=== PATIENT | male | born 1995 | race African-American/Black ===

== ENCOUNTER 2017-03-04 19:08 | Emergency (ER) | payer OTHER ==
[2017-03-04] MEDS ORDERED: Nitroglycerin 0.4 MG TAB 1 EACH ONE (19:35)
[2017-03-04 19:39] LABS: #Basophils 0.1 thou/uL (0.0-0.2); #Eosinphils 0.3 thou/uL (0.0-0.7); #Lymphocytes 2.7 thou/uL (1.20-3.40); #Monocytes 0.7 thou/uL (0.11-0.59); #Neutrophils 2.8 thou/uL (1.40-6.50); %Eosinophils 5.1 % (0.0-10.0); %Lymphocytes 40.2 % (21.0-51.0); %Neutrophils 42.7 % (42.0-75.0); Hemoglobin 15.2 g/dL (14.0-18.0); Mean Corpuscular HGB CONC 32.8 g/dL (32.0-36.0); Mean Corpuscular Hemoglobin 29.5 pg (27.0-31.0); Mean Corpuscular Volume 89.8 fl (80.0-94.0); Mean Platelet Volume 7.4 fL (7.4-10.4); Platelet Count 268 thou/uL (130-400); RBC Distribution Width 13.1 % (11.5-14.5); Red Blood Cell (RBC) Count 5.17 mill/uL (4.70-6.10); White Blood Cell (WBC) Count 6.6 thou/uL (4.8-10.8)
[2017-03-04 19:45] LABS: PTT 27.2 SEC (22.9-36.1); Prothrombin Time 13.7 SEC (12.0-14.7)
[2017-03-04 19:47] LABS: ALT (SGPT) 35 U/L (8-55); AST (SGOT) 27 U/L (5-34); Albumin 4.5 g/dL (3.5-5.0); Alkaline Phosphatase 94 U/L (40-150); Anion Gap 14 mmol/L (10-20); BUN (Urea Nitrogen) 18 mg/dL (8.9-20.6); Bilirubin, Total 0.3 mg/dL (0.2-1.2); CK (CPK) 449 U/L (30-200); Calc. Creatinine Clearance 0 mL/min (70-130); Calcium 9.5 mg/dL (7.8-10.44); Carbon Dioxide 24 mmol/L (22-29); Chloride 106 mmol/L (98-107); Estimated GFR-MDRD Greater than 90; Globulin 2.9 g/dL (2.4-3.5); Glucose 88 mg/dL (70-105); Magnesium 2.3 mg/dL (1.6-2.6); Potassium 3.8 mmol/L (3.5-5.1); Protein, Total 7.4 g/dL (6.0-8.3); Sodium 140 mmol/L (136-145)
[2017-03-04 19:48] LABS: CKMB 1.4 ng/mL (0-6.6); Troponin I Less than 0.010 ng/mL (< 0.028)
[2017-03-04 19:49] LABS: D-Dimer Test Less than 0.27 *mcg/mL (0.27-0.43)
--- NOTE | 2017-03-04 21:15 | RAD ---
RADIOGRAPH CHEST 1 VIEW: HISTORY: 21-year-old male with acute chest pain. FINDINGS: The visualized lung canela are clear. The cardiomediastinal silhouette and hilar shadows are normal . The lateral costophrenic angles are sharp. The osseous structures appear normal. There is no pn eumothorax. IMPRESSION: Negative. [email or web address] POS: [facility]
== END 2017-03-04 21:08 | disposition short-term general hospital (02) ==
LOC: MADERS 19:08
DX: R07.89 Other chest pain (principal)
CPT/HCPCS: 71010; 80053; 82553; 83735; 83880; 84484; 85025; 85379; 85610; 85652; 85730; 86140; 93005; 94760

== ENCOUNTER 2017-03-12 19:46 | Emergency (ER) | payer OTHER ==
[~2017-03-12 19:46] MED LIST: Lidocaine 1% 20 ML MDV ONE; Sodium Chloride Irrig Solution 250 ML BOT ONE
[2017-03-12] MEDS ORDERED: Triple Antibiotic Oint 1 GM Packet ONE (20:22)
== END 2017-03-12 20:30 | disposition home or self-care (01) ==
LOC: MADERS 19:46
DX: S61.012A Laceration without foreign body of left thumb without damage to nail, initial encounter (principal); F32.9 Major depressive disorder, single episode, unspecified; Z79.899 Other long term (current) drug therapy; W26.0XXA Contact with knife, initial encounter
CPT/HCPCS: 12002; J2001

== ENCOUNTER 2018-04-22 13:42 | Emergency (ER) | payer OTHER ==
[~2018-04-22 13:42] MED LIST changes: -Lidocaine 1% 20 ML MDV ONE; +Sodium Chloride 0.9% 1,000 ML BAG ONE; -Sodium Chloride Irrig Solution 250 ML BOT ONE
[2018-04-22] MEDS ORDERED: Ketorolac Tromethamine 30 MG/ML VIAL ONE (15:16)
[2018-04-22] MEDS ORDERED: Diphenoxylate HCl/Atropine Tablet ONE (15:16)
[2018-04-22] MEDS ORDERED: Ondansetron ODT 4 MG TAB ONE (15:16)
[2018-04-22 15:23] LABS: Bilirubin Negative (Negative); Blood, Urine Negative (Negative); Clarity Clear (Clear); Glucose, Urine (Dipstick) Negative (Negative); Leukocyte Negative (Negative); Nitrite Negative (Negative); Protein, Urine (Dipstick) Negative (Neg-Trace); Urobilinogen 0.2 mg/dL (0.2-1.0)
[2018-04-22 15:24] LABS: #Basophils 0.2 thou/uL (0.0-0.2); #Eosinphils 0.2 thou/uL (0.0-0.7); #Lymphocytes 2.3 thou/uL (1.20-3.40); #Monocytes 0.5 thou/uL (0.11-0.59); #Neutrophils 3.5 thou/uL (1.40-6.50); %Basophils 2.4 % (0.0-1.0); %Eosinophils 3.2 % (0.0-10.0); %Monocytes 7.4 % (0.0-10.0); Hemoglobin 13.1 g/dL (14.0-18.0); Mean Corpuscular HGB CONC 31.3 g/dL (32.0-36.0); Mean Corpuscular Hemoglobin 27.6 pg (27.0-31.0); Mean Corpuscular Volume 88.3 fL (78.0-98.0); Mean Platelet Volume 6.5 fL (7.4-10.4); Platelet Count 326 thou/uL (130-400); RBC Distribution Width 12.1 % (11.5-14.5); Red Blood Cell (RBC) Count 4.73 mill/uL (4.70-6.10); White Blood Cell (WBC) Count 6.7 thou/uL (4.8-10.8)
--- NOTE | 2018-04-22 15:28 | RAD ---
SINGLE VIEW OF THE CHEST: Comparison: 03-04-17 History: Nausea and vomiting. FINDINGS: Single view of the chest shows a normal sized cardiomediastinal silhouette. There is no evidence of c onsolidation, mass, or pleural effusion. The bones are unremarkable. IMPRESSION: No evidence of acute cardiopulmonary disease. POS: [facility]
[2018-04-22 15:38] LABS: Bacteria/HPF 1+ HPF (None Seen); RBC/HPF 0-3 HPF (0-3); Squamous Epithelial 0-3 HPF (0-3); WBC/HPF 0-3 HPF (0-3)
[2018-04-22 15:39] LABS: ALT (SGPT) 15 U/L (8-55); AST (SGOT) 20 U/L (5-34); Albumin 4.5 g/dL (3.5-5.0); Alkaline Phosphatase 70 U/L (40-150); Anion Gap 16 mmol/L (10-20); BUN (Urea Nitrogen) 13 mg/dL (8.9-20.6); Bilirubin, Total 0.9 mg/dL (0.2-1.2); Calc. Creatinine Clearance 0 mL/min (70-130); Calcium 9.6 mg/dL (7.8-10.44); Carbon Dioxide 25 mmol/L (22-29); Chloride 105 mmol/L (98-107); Estimated GFR-MDRD Greater than 90; Globulin 2.9 g/dL (2.4-3.5); Glucose 81 mg/dL (70-105); Lipase 4 U/L (8-78); Potassium 3.7 mmol/L (3.5-5.1); Protein, Total 7.4 g/dL (6.0-8.3); Sodium 142 mmol/L (136-145)
== END 2018-04-22 16:30 | disposition home or self-care (01) ==
LOC: MADERS 13:42
DX: K52.9 Noninfective gastroenteritis and colitis, unspecified (principal); F32.9 Major depressive disorder, single episode, unspecified
CPT/HCPCS: 36415; 71045; 80053; 81001; 82150; 83690; 85025; 87086; 96361; 96374; J1885; J7050; Q0162

== ENCOUNTER 2018-07-27 12:15 | Emergency (ER) | payer SELFPAY ==
[2018-07-27] MEDS ORDERED: Ibuprofen 800 MG TAB ONE (12:29)
[2018-07-27] MEDS ORDERED: methylPREDNISolone Sod Succ/PF 125 MG/2 ML VIAL ONE (12:33)
[2018-07-27 12:48] LABS: Anion Gap 16 mmol/L (10-20); BUN (Urea Nitrogen) 10 mg/dL (8.9-20.6); CK (CPK) 284 U/L (30-200); Calc. Creatinine Clearance 0 mL/min (70-130); Calcium 9.9 mg/dL (7.8-10.44); Carbon Dioxide 23 mmol/L (22-29); Estimated GFR-MDRD Greater than 90; Glucose 88 mg/dL (70-105); Potassium 4.5 mmol/L (3.5-5.1); Sodium 141 mmol/L (136-145)
--- NOTE | 2018-07-27 12:48 | RAD ---
CHEST 1 VIEW: HISTORY: Pain. COMPARISON: 04/22/2018. FINDINGS: Normal cardiac silhouette. The lungs and pleural spaces are clear. No pneumothorax or osseous abnor malities. IMPRESSION: No acute cardiopulmonary process. POS: [email or web address]
[2018-07-27 12:49] LABS: Eosinophils 3 % (0-10); Hemoglobin 15.3 g/dL (14.0-18.0); Lymphocytes 34 % (21-51); MDiff Complete? YES; Mean Corpuscular HGB CONC 32.6 g/dL (32.0-36.0); Mean Corpuscular Hemoglobin 29.5 pg (27.0-31.0); Mean Corpuscular Volume 90.5 fL (78.0-98.0); Mean Platelet Volume 7.2 fL (7.4-10.4); Monocytes 10 % (0-10); Neutrophil 53 % (42-75); PLT Morphology Comment Appears Adequate; Platelet Count 309 thou/uL (130-400); RBC Distribution Width 12.5 % (11.5-14.5); Red Blood Cell (RBC) Count 5.18 mill/uL (4.70-6.10); White Blood Cell (WBC) Count 6.1 thou/uL (4.8-10.8)
[2018-07-27 12:50] LABS: CKMB 1.2 ng/mL (0-6.6); Troponin I Less than 0.010 ng/mL (< 0.028)
[2018-07-27 13:02] LABS: Chloride 107 mmol/L (98-107)
== END 2018-07-27 13:15 | disposition home or self-care (01) ==
LOC: MADERS 12:15
DX: R07.81 Pleurodynia (principal); F32.9 Major depressive disorder, single episode, unspecified
CPT/HCPCS: 71045; 80048; 82553; 84484; 85025; 85379; 93005; 96374; J2930

== ENCOUNTER 2019-01-11 10:30 | Emergency (ER) | payer SELFPAY ==
[2019-01-11 11:39] LABS: ALT (SGPT) 18 U/L (8-55); AST (SGOT) 20 U/L (5-34); Acetaminophen Less than 6.0 mcg/mL (10.0-30.0); Albumin 4.6 g/dL (3.5-5.0); Alcohol Less than 10 mg/dL (Less than 10); Alkaline Phosphatase 84 U/L (40-150); Anion Gap 14 mmol/L (10-20); BUN (Urea Nitrogen) 15 mg/dL (8.9-20.6); Bilirubin, Total 0.6 mg/dL (0.2-1.2); Calc. Creatinine Clearance 0 mL/min (70-130); Calcium 9.7 mg/dL (7.8-10.44); Carbon Dioxide 23 mmol/L (22-29); Chloride 108 mmol/L (98-107); Estimated GFR-MDRD Greater than 90; Globulin 2.8 g/dL (2.4-3.5); Glucose 99 mg/dL (70-105); Potassium 4.2 mmol/L (3.5-5.1); Protein, Total 7.4 g/dL (6.0-8.3); Salicylate Less than 8.0 mg/dL (15.0-30.0); Sodium 141 mmol/L (136-145)
[2019-01-11 11:42] LABS: Hemoglobin 14.4 g/dL (14.0-18.0); Manual Diff?? YES; Mean Corpuscular HGB CONC 30.5 g/dL (32.0-36.0); Mean Corpuscular Hemoglobin 28.2 pg (27.0-31.0); Mean Corpuscular Volume 92.4 fL (78.0-98.0); Mean Platelet Volume 6.9 fL (7.4-10.4); Platelet Count 276 thou/uL (130-400); RBC Distribution Width 12.8 % (11.5-14.5); Red Blood Cell (RBC) Count 5.11 mill/uL (4.70-6.10); White Blood Cell (WBC) Count 4.9 thou/uL (4.8-10.8)
[2019-01-11 11:43] LABS: Eosinophils 3 % (0-10); Lymphocytes 25 % (21-51); MDiff Complete? YES; Monocytes 13 % (0-10); Neutrophil 59 % (42-75); Platelet Morphology Comment Appears Adequate
[2019-01-11 11:55] LABS: INR-International Normal Ratio 1.1; PTT 26.1 SEC (22.9-36.1); Prothrombin Time 13.9 SEC (12.0-14.7)
[2019-01-11 12:06] LABS: Amphetamine Not Detected (NotDetected); Barbiturates Screen Not Detected (NotDetected); Benzodiazepine Screen Not Detected (NotDetected); Cocaine Metabolite Screen Not Detected (NotDetected); Medtox Control Line Valid? VALID (VALID); Methadone Not Detected (NotDetected); Methamphetamine Not Detected (NotDetected); Opiate Screen Not Detected (NotDetected); Oxycodone Screen Not Detected (NotDetected); Phencyclidine (PCP) Not Detected (NotDetected); THC/Cannabinoid Screen Detected (NotDetected); Tricyclic Screen Not Detected (NotDetected)
== END 2019-01-11 15:25 | disposition home or self-care (01) ==
LOC: MADERS 10:30
DX: F32.9 Major depressive disorder, single episode, unspecified (principal)
CPT/HCPCS: 36415; 80053; 80306; 80307; 84443; 85025; 85610; 85730; 99285

== ENCOUNTER 2019-09-28 20:38 | Emergency (ER) | payer SELFPAY ==
[2019-09-28] MEDS ORDERED: Ibuprofen 800 MG TAB ONE (21:03)
[2019-09-28] MEDS ORDERED: Ondansetron ODT 4 MG TAB ONE (21:03)
== END 2019-09-28 21:55 | disposition home or self-care (01) ==
LOC: MADERS 20:38
DX: J11.1 Influenza due to unidentified influenza virus with other respiratory manifestations (principal); R03.0 Elevated blood-pressure reading, without diagnosis of hypertension; F32.9 Major depressive disorder, single episode, unspecified
CPT/HCPCS: 99283; Q0162

== ENCOUNTER 2019-10-01 12:43 | Emergency (ER) | payer SELFPAY ==
[2019-10-01] MEDS ORDERED: Ondansetron ODT 4 MG TAB ONE ×2 (13:08→13:09)
== END 2019-10-01 13:20 | disposition home or self-care (01) ==
LOC: MADERS 12:43
DX: R11.2 Nausea with vomiting, unspecified (principal); R19.7 Diarrhea, unspecified; F32.9 Major depressive disorder, single episode, unspecified
CPT/HCPCS: 99283; Q0162

== ENCOUNTER 2020-05-06 06:53 | Emergency (ER) | payer SELFPAY ==
[2020-05-06] MEDS ORDERED: Prochlorperazine 10 MG/2 ML VIAL ONE (07:27)
== END 2020-05-06 08:13 | disposition home or self-care (01) ==
LOC: MADERS 06:53
DX: K52.9 Noninfective gastroenteritis and colitis, unspecified (principal); F32.9 Major depressive disorder, single episode, unspecified
CPT/HCPCS: 96372; 99283; J0780

== ENCOUNTER 2020-08-13 09:11 | Emergency (ER) | payer SELFPAY ==
[2020-08-13] MEDS ORDERED: Ibuprofen 400 MG TAB ONE (09:34)
[2020-08-13] MEDS ORDERED: Ondansetron ODT 4 MG TAB ONE (09:34)
== END 2020-08-13 09:45 | disposition home or self-care (01) ==
LOC: MADERS 09:11
DX: A08.4 Viral intestinal infection, unspecified (principal); F32.9 Major depressive disorder, single episode, unspecified
CPT/HCPCS: 99283; Q0162

== ENCOUNTER 2021-11-06 04:31 | Emergency (ER) | payer SELFPAY ==
[2021-11-06 15:31] LABS: SARS-CoV-2 PCR by NAA DETECTED (NotDetected)
== END 2021-11-06 05:04 | disposition home or self-care (01) ==
LOC: MADERS 04:31
DX: U07.1 COVID-19 (principal)
CPT/HCPCS: 99283; U0003; U0005

== ENCOUNTER 2022-04-01 18:46 | Emergency (ER) | payer SELFPAY, OTHER ==
[2022-04-01] MEDS ORDERED: Boostrix 0.5 ML (Tdap) VIAL ONE (18:59)
[2022-04-01] MEDS ORDERED: Lidocaine 1%/Epinephrine 1:100K 10 ML VIAL ONE (19:00)
== END 2022-04-01 19:38 | disposition home or self-care (01) ==
LOC: MADERS 18:46
DX: L05.01 Pilonidal cyst with abscess (principal)
CPT/HCPCS: 10080; 90471; 90715

== ENCOUNTER 2022-04-04 14:38 | Emergency (ER) | payer OTHER, SELFPAY | END 2022-04-04 17:38 | disposition home or self-care (01) | LOC: MADERS 14:38 | DX: Z48.817 Encounter for surgical aftercare following surgery on the skin and subcutaneous tissue (principal) | CPT/HCPCS: 99282 ==

== ENCOUNTER 2022-11-19 03:56 | Emergency (ER) | payer OTHER, SELFPAY ==
[2022-11-19] MEDS ORDERED: Dexamethasone 10 MG/ML VIAL ONE (04:16)
== END 2022-11-19 04:45 | disposition home or self-care (01) ==
LOC: MADERS 03:56
DX: J02.9 Acute pharyngitis, unspecified (principal); I10 Essential (primary) hypertension
CPT/HCPCS: 87430; 96372; 99283; J1100

== ENCOUNTER 2023-02-11 08:53 | Emergency (ER) | payer SELFPAY ==
[2023-02-11] MEDS ORDERED: Lidocaine 1% PF 5 ML VIAL ONE (10:19)
== END 2023-02-11 11:50 | disposition home or self-care (01) ==
LOC: MADERS 08:53
DX: L05.01 Pilonidal cyst with abscess (principal); I10 Essential (primary) hypertension
CPT/HCPCS: 10080; 87070; 87205; 94760

== ENCOUNTER 2023-02-13 06:53 | Emergency (ER) | payer SELFPAY | END 2023-02-13 07:16 | disposition home or self-care (01) | LOC: MADERS 06:53 | DX: Z48.00 Encounter for change or removal of nonsurgical wound dressing (principal); L05.01 Pilonidal cyst with abscess; I10 Essential (primary) hypertension | CPT/HCPCS: 99282 ==

== ENCOUNTER 2023-03-25 12:12 | Emergency (ER) | payer SELFPAY ==
[2023-03-25] MEDS ORDERED: Dexamethasone 4 MG TAB ONE (13:27)
[2023-03-25] MEDS ORDERED: Albuterol 200 PUFF (6.7GM INHALER) ONE (13:27)
== END 2023-03-25 13:30 | disposition home or self-care (01) ==
LOC: MADERS 12:12
DX: J06.9 Acute upper respiratory infection, unspecified (principal); I10 Essential (primary) hypertension
CPT/HCPCS: 87081; 87430; J8540

== ENCOUNTER 2023-05-09 06:19 | Emergency (ER) | payer SELFPAY ==
[2023-05-09] MEDS ORDERED: Sodium Chloride 0.9% 1,000 ML ONE (06:51)
[2023-05-09] MEDS ORDERED: Ondansetron PF 4 MG/2 ML Vial ONE (06:51)
[2023-05-09 07:28] LABS: Band 1 % (5-11); Eosinophils 7 % (0-10); Hemoglobin 14.9 g/dL (14.0-18.0); Lymphocytes 47 % (21-51); MDiff Complete? YES; Manual Diff?? YES; Mean Corpuscular HGB CONC 31.2 g/dL (32.0-36.0); Mean Corpuscular Hemoglobin 28.4 pg (27.0-31.0); Mean Corpuscular Volume 90.8 fl (78.0-98.0); Mean Platelet Volume 9.2 fL (7.4-10.4); Monocytes 5 % (0-10); Neutrophil 40 % (42-75); Platelet Count 301 10x3/uL (130-400); RBC Distribution Width 13.3 % (11.5-14.5); Red Blood Cell (RBC) Count 5.24 mill/uL (4.70-6.10); White Blood Cell (WBC) Count 5.7 10x3/uL (4.8-10.8)
[2023-05-09 07:29] LABS: Anisocytosis SLIGHT = 6-15 cells (100X) (0-5/hpf); Platelet Adequacy Comment Appears Adequate
[2023-05-09 07:30] LABS: ALT (SGPT) 38 U/L (8-55); AST (SGOT) 26 U/L (5-34); Albumin 4.5 g/dL (3.5-5.0); Alkaline Phosphatase 88 U/L (40-110); Anion Gap 12 mmol/L (10-20); BUN (Urea Nitrogen) 14 mg/dL (8.9-20.6); Bilirubin, Total 1.1 mg/dL (0.2-1.2); Calc. Creatinine Clearance 0 mL/min (70-130); Calcium 9.4 mg/dL (7.8-10.44); Carbon Dioxide 24 mmol/L (22-29); Chloride 108 mmol/L (98-107); Estimated GFR 96; Globulin 2.7 g/dL (2.4-3.5); Glucose 106 mg/dL (70-105); Lipase 9 U/L (8-78); Potassium 3.8 mmol/L (3.5-5.1); Protein, Total 7.2 g/dL (6.0-8.3); Sodium 140 mmol/L (136-145)
[2023-05-09 07:33] LABS: Bilirubin Negative (Negative); Blood, Urine Negative (Negative); Clarity Clear (Clear); Glucose, Urine (Dipstick) Negative (Negative); Ketone, Urine Negative (Negative); Leukocyte Negative (Negative); Nitrite Negative (Negative); Protein, Urine (Dipstick) Negative (Neg-Trace); Specific Gravity, Urine 1.025 (1.005-1.030); Urobilinogen 0.2 mg/dL (Less than 2)
[2023-05-09 07:39] LABS: Bacteria/HPF Rare-Few HPF (None Seen); CAUTI Indications for Culture Dysuria,urgency,freq; RBC/HPF 0-3 HPF (0-3); Squamous Epithelial 0-3 HPF (0-3); WBC/HPF 0-3 HPF (0-3)
[2023-05-09 07:40] LABS: Urine Culture Reflex No No
== END 2023-05-09 07:55 | disposition home or self-care (01) ==
LOC: MADERS 06:19
DX: A05.9 Bacterial foodborne intoxication, unspecified (principal); I10 Essential (primary) hypertension
CPT/HCPCS: 80053; 81001; 83605; 83690; 84484; 85025; 96361; 96374; J2405; J7050

== ENCOUNTER 2023-05-28 07:27 | Emergency (ER) | payer OTHER, SELFPAY ==
[2023-05-28] MEDS ORDERED: Lidocaine 1% PF 5 ML VIAL ONE (07:53)
== END 2023-05-28 08:20 | disposition home or self-care (01) ==
LOC: MADERS 07:27
DX: S61.213A Laceration without foreign body of left middle finger without damage to nail, initial encounter (principal); I10 Essential (primary) hypertension; W20.8XXA Other cause of strike by thrown, projected or falling object, initial encounter
CPT/HCPCS: 12002

== ENCOUNTER 2023-06-10 08:31 | Emergency (ER) | payer SELFPAY | END 2023-06-10 08:48 | disposition home or self-care (01) | LOC: MADERS 08:31 | DX: S61.213D Laceration without foreign body of left middle finger without damage to nail, subsequent encounter (principal); I10 Essential (primary) hypertension; X58.XXXD Exposure to other specified factors, subsequent encounter ==

== ENCOUNTER 2023-10-25 16:21 | Emergency (ER) | payer SELFPAY, OTHER ==
[2023-10-25] MEDS ORDERED: Benzonatate 100 MG CAP ONE (16:44)
[2023-10-25] MEDS ORDERED: Ondansetron ODT 4 MG TAB ONE (16:44)
[2023-10-25] MEDS ORDERED: Acetaminophen 500 MG TAB ONE (16:45)
== END 2023-10-25 17:16 | disposition home or self-care (01) ==
LOC: MADERS 16:21
DX: B34.9 Viral infection, unspecified (principal); I10 Essential (primary) hypertension
CPT/HCPCS: 87635; 87804; 99283; Q0162

== ENCOUNTER 2023-12-12 18:45 | Emergency (ER) | payer OTHER, SELFPAY ==
[2023-12-12] MEDS ORDERED: Ibuprofen 800 MG TAB ONE (19:45)
[2023-12-12 20:07] LABS: SARS-CoV-2 E Target Negative; SARS-CoV-2 N2 Target Negative; SARS-CoV-2 NAA Rapid Test Not Detected (NotDetected); SARS-CoV-2 RdRP gene Negative
== END 2023-12-12 21:00 | disposition home or self-care (01) ==
LOC: MADERS 18:45
DX: J10.1 Influenza due to other identified influenza virus with other respiratory manifestations (principal); I10 Essential (primary) hypertension
CPT/HCPCS: 87804; 99283; U0002